=== PATIENT | male | born 1950 | race Caucasian/White ===

== ENCOUNTER → 2024-09-19 07:06 | Outpatient (REF) | payer OTHER, SELFPAY ==
[2024-09-19 09:41] LABS: % Basophils 0.6 % (0-2); % Eosinophils 2.2 % (0-6); % Immature Granulocytes 0.2 % (0-0.5); % Lymphocytes 41.3 % (20.5-51.1); % Monocytes 9.6 % (1.7-9.3); % Neutrophils 46.1 % (42.2-75.2); Absolute Eosinophils 0.1 10^3/uL (0-0.7); Absolute Lymphocytes 2.6 10^3/uL (1.2-3.4); Absolute Monocytes 0.6 10^3/uL (0.1-0.6); Absolute Neutrophils 2.9 10^3/uL (1.4-6.5); Hemoglobin 15.5 g/dL (13.0-18.0); Mean Corp Hgb Conc. 34.4 g/dL (33.0-37.0); Mean Corpuscular Hgb 31.1 pg (27.0-31.0); Mean Corpuscular Volume 90.4 fL (80.0-94.0); Nucleated Red Blood Cells % 0 % (-); Platelet Count 174 10^3/uL (130-400); Red Blood Cell Count 4.98 10^6/uL (4.70-6.10); White Blood Cell Count 6.3 10^3/uL (4.8-10.8)
[2024-09-19 10:00] LABS: ALT (SGPT) 43 U/L (0-50); AST (SGOT) 36 U/L (17-59); Albumin 4.3 g/dl (3.5-5.0); Alkaline Phosphatase 49 U/L (38-126); Blood Urea Nitrogen 29 mg/dl (9-20); Calcium 9.5 mg/dl (8.4-10.2); Carbon Dioxide 25 mmol/L (22-30); Chloride 104 mmol/L (98-107); Glucose 84 mg/dl (70-99); HDL Cholesterol 48 mg/dl; LDL Cholesterol, Calculated 68 mg/dl; Potassium 4.3 mmol/L (3.5-5.1); Sodium 144 mmol/L (135-145); Total Bilirubin 0.7 mg/dl (0.2-1.3); Total Cholesterol 131 mg/dl (50-199); Total Protein 6.7 g/dl (6.3-8.2); Triglyceride 77 mg/dl (10-149); Very Low Density Lipoprotein 15 mg/dl (0-30); eGFR > 60.00
[2024-09-19 10:24] LABS: Urine Albumin Negative (Neg - Trace); Urine Bilirubin Negative (Negative); Urine Character Clear (Clear); Urine Color Yellow; Urine Glucose Negative (Negative); Urine Ketone Negative (Negative); Urine Leukocyte Negative (Negative); Urine Nitrite Negative (Negative); Urine Occult Blood Negative (Negative); Urine Urobilinogen Negative (Neg - 1+)
== END ==
LOC: HWLAB 07:06
PROVIDERS: ATTENDING PHYSICIAN Internal Medicine Geriatric Medicine
DX: E78.2 Mixed hyperlipidemia (principal); E66.9 Obesity, unspecified; R73.01 Impaired fasting glucose; N40.0 Benign prostatic hyperplasia without lower urinary tract symptoms; I63.9 Cerebral infarction, unspecified; I82.431 Acute embolism and thrombosis of right popliteal vein; I26.94 Multiple subsegmental thrombotic pulmonary emboli without acute cor pulmonale; M62.81 Muscle weakness (generalized); R27.9 Unspecified lack of coordination
CPT/HCPCS: 36415; 80053; 80061; 81003; 85025

== ENCOUNTER 2025-01-01 12:02 | Emergency (ER) | payer OTHER, SELFPAY ==
[2025-01-01 12:03] VITALS: BP 143/77
--- NOTE | 2025-01-01 12:40 | ED.GENMED ---
History of Present Illness
<Placido Jonas MD - Last Filed: 01/01/25 12:49>
General
Chief Complaint: Fall
Time Seen by Provider: 01/01/25 12:35
<Hanna Valderrama PA-C - Last Filed: 01/01/25 21:33>
General
Source: patient
Exam Limitations: none
Nursing documentation reviewed up to this point in time: agreed with
History of Present Illness
History of Present Illness:
This is a 74-year-old male with past medical history of hypertension, hyperlipidemia, who presents to the emergency department today with concerns of right wrist pain and knee pain following a fall. Patient reports that he was walking out of [employer] yesterday when he was walking over the carpet and lost his footing and tripped and fell onto his right side. This occurred last night. He stood up and was able to walk okay after the fall. He uses a walker at baseline. He did not injure
his head or neck when he fell. He denies loss of consciousness. Patient states that he used to take Eliquis but is no longer taking this. 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
sensory deficits.
Past History
<Placido Jonas MD - Last Filed: 01/01/25 12:49>
Past History
ED Past Medical History: CVA and HTN
ED Past Surgical History: Orthopedic
Social History
Tobacco: Non-smoker
Alcohol: Occasional
Drug: None
Personal:
Living: with family
Employment: Retired (IRS)
Family History
Family History: CAD and Other (CVA)
Review of Systems
<Placido Jonas MD - Last Filed: 01/01/25 12:49>
Review of Systems
ABD/GI: Denies nausea
<Hanna Valderrama PA-C - Last Filed: 01/01/25 21:33>
Review of Systems
All Other Systems: ROS reviewed and negative except as documented in HPI and ROS
Phy Exam
<Hanna Valderrama PA-C - Last Filed: 01/01/25 21:33>
Physical Exam
Physical Exam:
General: Patient is well appearing and in no acute distress; non-toxic
Skin: Warm and dry, no rashes or lesions
Head: Normocephalic, atraumatic
Eyes: Sclera non-icteric. EOMs intact.
Cardiac: Regular rate
Peripheral Vascular: No lower extremity swelling or edema. Brisk capillary refill. 2+ radial and ulnar pulses on the right. 2+ dorsalis pedis and posterior tibial pulses on the right.
Pulm: Normal respiratory effort
Musculoskeletal: Erythema and swelling noted to the right wrist with full range of motion of the right wrist, full range of motion of the right elbow, no palpable bony deformities. Swelling noted over the right knee, no tenderness to palpation of
the right lower extremity.
Neuro: CN II-XII intact, no focal neurologic deficits.
Psychiatric: Appropriate mood and affect.
Course
<Placido Jonas MD - Last Filed: 01/01/25 12:49>
Orders/Labs/Results
Orders:
Orders
01/01/25 12:09
CR Knee- Right 4 Or More View* Urgent
Comment:
Reason For Exam: fall, pain
CR Wrist - Right Min 3 Views Urgent
Comment:
Reason For Exam: fall, pain/swelling
01/01/25 13:49
Knee Immobilizer Right-Treatme ONCE
01/01/25 13:50
[place] Wrist Right-Tx ONCE
Acetaminophen [Tylenol] 650 mg PO NOW STA
Vital Signs
Initial and Last Documented VS:
Initial Vital Signs
Temp Pulse Resp BP Pulse Ox
97.6 F 60 18 143/77 99
01/01/25 12:03 01/01/25 12:03 01/01/25 12:03 01/01/25 12:03 01/01/25 12:03
Last Documented Vital Signs
Temp Pulse Resp BP Pulse Ox
97.6 F 60 18 143/77 99
01/01/25 12:03 01/01/25 12:03 01/01/25 12:03 01/01/25 12:03 01/01/25 12:03
<Hanna Valderrama PA-C - Last Filed: 01/01/25 21:33>
Orders/Labs/Results
Orders:
Orders
01/01/25 12:09
CR Knee- Right 4 Or More View* Urgent
Comment:
Reason For Exam: fall, pain
CR Wrist - Right Min 3 Views Urgent
Comment:
Reason For Exam: fall, pain/swelling
01/01/25 13:49
Knee Immobilizer Right-Treatme ONCE
01/01/25 13:50
[place] Wrist Right-Tx ONCE
Acetaminophen [Tylenol] 650 mg PO NOW STA
Vital Signs
Initial and Last Documented VS:
Initial Vital Signs
Temp Pulse Resp BP Pulse Ox
97.6 F 60 18 143/77 99
01/01/25 12:03 01/01/25 12:03 01/01/25 12:03 01/01/25 12:03 01/01/25 12:03
Last Documented Vital Signs
Temp Pulse Resp BP Pulse Ox
97.6 F 60 18 143/77 99
01/01/25 12:03 01/01/25 12:03 01/01/25 12:03 01/01/25 12:03 01/01/25 12:03
<Hanna Valderrama PA-C - Last Filed: 01/01/25 21:33>
MDM/Problems Addressed
Differential Diagnosis Includes:
ddx include colles fracture, contusion, distal ulna fracture, wrist sprain
MDM/Problems Addressed:
74-year-old male presents emergency department today with concerns of right wrist pain and right knee pain following a fall. He does not take a blood thinner currently. He did not hit his head or injure his neck during the fall. This fall
occurred last night. He went for x-rays which was negative for fracture. In light of pain and swelling, patient was given knee immobilizer and wrist splint. Advised patient to continue to monitor his symptoms and discussed that orthopedic
follow-up may be necessary an MRI may be necessary to look for occult fracture should he not improve. Return precautions discussed. Patient stable for discharge
<Hanna Valderrama PA-C - Last Filed: 01/01/25 21:33>
*Pulse Oximetry
Patient hypoxic: no
*Critical Care Note
Total Time (30-74mins, 75-104mins- exclusive of procedures): Not Applicable
Data Reviewed
Review of Other/Old Records Reveals: Records (reviewed discharge summary from 04/02/20 patient seen for severe dvt)
Source: patient and records
<Hanna Valderrama PA-C - Last Filed: 01/01/25 21:33>
Patient Management
Escalation/DeEscalation of care consider admission/obs:
admit not indicated
case reviewed with my attending
ED Attending Note
<Placido Jonas MD - Last Filed: 01/01/25 12:49>
-
Portions of this chart may have been created with voice recognition software.� Occasional wrong word or��sound alike� substitutions may have occurred due to the inherent limitations of voice recognition software.
Discharge Plan
Departure
Patient Disposition: Home (Routine Discharge)
Date of Disposition: 01/01/25
Time of Disposition: 14:09
Patient with high blood pressure during this ER visit?: Yes
Condition: Good
Discharge Problem:
Contusion of knee, Right wrist sprain
Instructions: Common wrist injuries, BLOOD PRESSURE, Contusion
Prescriptions:
No Action
cholecalciferol (vitamin D3) 2,000 UNITS tablet
2,000 units PO QPM
multivitamin with folic acid [Tab-A-Inna] 1 TABLET tablet
2 tab PO BID
aspirin 81 MG tablet,delayed release (DR/EC)
81 mg PO DAILY Qty: 30 0RF
docusate sodium 100 MG capsule
100 mg PO BID Qty: 60 0RF
atorvastatin 40 MG tablet
40 mg PO QPM Qty: 30 0RF
sennosides [senna] 1 TABLET tablet
2 tab PO DAILY@1200 PRN (Reason: constipation) Qty: 60 0RF
amlodipine 5 MG tablet
5 mg PO DAILY Qty: 30 0RF
apixaban [Eliquis] 5 MG tablet
5 mg PO BID Qty: 61 0RF
Rx Instructions:
Take 2 tablets the night of 04/02/20, then 1 tablet twice a day.
Referrals:
Arsen Dubose MD [Family Provider] -
Lexa Puentes MD [Active] - Call in 1-3 days for appt
Activity Restrictions/Additional Instructions:
Your x-rays did not show any evidence of fracture or dislocation.
Please continue to monitor your symptoms.
Please call the attached number to schedule an appointment to see orthopedics.
Please use the knee brace while ambulating and keep the knee elevated at home, this will help reduce swelling. You can also apply ice to the area.
PLEASE RETURN TO THE ER SHOULD YOU DEVELOP PALLOR, CHEST PAIN, SHORTNESS OF BREATH, WEAKNESS IN ONE-SIDED BODY VERSUS OTHER INABILITY TO MOVE YOUR WRIST, INABILITY MOVE YOUR KNEE, INABILITY TO WALK, LOSS OF SENSATION, INCREASING PAIN, OR ANY OTHER
SIGNS OR SYMPTOMS WORRISOME TO YOU
Interventions
Interventions:
*Risk Screen - Suicide Last Done: 01/01/25 12:03
*General Assessment Last Done: 01/01/25 12:03
*Neglect/Abuse Screening Last Done: 01/01/25 13:23
ED- Fall Risk Assessment Last Done: 01/01/25 13:23
*ED COVID-19 Vaccine History Last Done: 01/01/25 12:03
*Nursing Disposition Last Done: 01/01/25 14:15
ED-Musculoskeletal Assessment Last Done: 01/01/25 13:23
ED- Neurological Assessment Last Done: 01/01/25 13:23
ED-Skin Assessment Last Done: 01/01/25 13:23
Discharge Date and Time
Discharge Date/Time: 01/01/25 14:24
Print Language: [place]
== END 2025-01-01 14:24 | disposition home or self-care (01) ==
LOC: EMR 12:02
PROVIDERS: EMERGENCY PHYSICIAN Emergency Medicine; FAMILY PHYSICIAN Internal Medicine Geriatric Medicine
DX: S80.01XA Contusion of right knee, initial encounter (principal); S63.501A Unspecified sprain of right wrist, initial encounter; W19.XXXA Unspecified fall, initial encounter; Y93.01 Activity, walking, marching and hiking; I10 Essential (primary) hypertension; E78.00 Pure hypercholesterolemia, unspecified; Z82.3 Family history of stroke; Z82.49 Family history of ischemic heart disease and other diseases of the circulatory system; Z86.73 Personal history of transient ischemic attack (TIA), and cerebral infarction without residual deficits
CPT/HCPCS: 99283; 73110; 73564

== ENCOUNTER → 2025-02-19 09:11 | Outpatient (REF) | payer OTHER, SELFPAY ==
[2025-02-19 12:48] LABS: Blood Urea Nitrogen 24 mg/dl (9-20); Calcium 9.8 mg/dl (8.4-10.2); Carbon Dioxide 29 mmol/L (22-30); Chloride 106 mmol/L (98-107); Glucose 110 mg/dl (70-99); Potassium 4.8 mmol/L (3.5-5.1); Sodium 142 mmol/L (135-145); eGFR > 60.00
== END ==
LOC: HWLAB 09:11
PROVIDERS: ATTENDING PHYSICIAN Internal Medicine Geriatric Medicine
DX: Z00.00 Encounter for general adult medical examination without abnormal findings (principal); E78.2 Mixed hyperlipidemia; E66.9 Obesity, unspecified; R73.01 Impaired fasting glucose; N40.0 Benign prostatic hyperplasia without lower urinary tract symptoms; I63.9 Cerebral infarction, unspecified; I82.431 Acute embolism and thrombosis of right popliteal vein; M62.81 Muscle weakness (generalized); R27.9 Unspecified lack of coordination; Z13.89 Encounter for screening for other disorder; M21.371 Foot drop, right foot
CPT/HCPCS: 36415; 80048

== ENCOUNTER → 2025-11-03 06:43 | Outpatient (REF) | payer OTHER, SELFPAY ==
[2025-11-03 09:48] LABS: Hematocrit 45.8 % (39.0-52.0); Hemoglobin 15.1 g/dL (13.0-18.0); Mean Corp Hgb Conc. 33.0 g/dL (33.0-37.0); Mean Corpuscular Volume 91.4 fL (80.0-94.0); Nucleated Red Blood Cells % 0 % (-); Platelet Count 175 10^3/uL (130-400); Red Cell Dist. Width 12.2 % (11.5-14.5)
[2025-11-03 10:35] LABS: Urine Character Clear (Clear)
[2025-11-03 10:41] LABS: ALT (SGPT) 42 U/L (0-50); AST (SGOT) 35 U/L (17-59); Albumin 4.2 g/dl (3.5-5.0); Alkaline Phosphatase 78 U/L (38-126); Blood Urea Nitrogen 24 mg/dl (9-20); Calcium 9.5 mg/dl (8.4-10.2); Carbon Dioxide 28 mmol/L (22-30); Chloride 107 mmol/L (98-107); Glucose 84 mg/dl (70-99); HDL Cholesterol 54 mg/dl; LDL Cholesterol, Calculated 61 mg/dl; Potassium 4.3 mmol/L (3.5-5.1); Sodium 140 mmol/L (135-145); Total Protein 7.2 g/dl (6.3-8.2); Very Low Density Lipoprotein 11 mg/dl (0-30); eGFR > 60.00
[2025-11-03 12:26] LABS: Vitamin D, 25-OH*** 83.6 ng/mL (30-80)
== END ==
LOC: HWLAB 06:43
PROVIDERS: ATTENDING PHYSICIAN Nurse Practitioner Family; FAMILY PHYSICIAN Internal Medicine Geriatric Medicine
DX: R05.3 Chronic cough (principal); R60.0 Localized edema; E78.2 Mixed hyperlipidemia; E66.9 Obesity, unspecified; R73.01 Impaired fasting glucose; N40.0 Benign prostatic hyperplasia without lower urinary tract symptoms
CPT/HCPCS: 36415; 71046; 80053; 80061; 81003; 82306; 83880; 85025